=== PATIENT | male | born 1955 | race Caucasian/White ===

== ENCOUNTER 2024-11-28 15:38 | Emergency (ER) | payer MEDICARE, OTHER ==
[~2024-11-28] VITALS: Ht 175.3 cm; Wt 83.9 kg
[2024-11-28 16:07] LABS: BASOPHILS % (AUTO) 0.1 % (0.0-2.0); HEMATOCRIT 41.7 % (36.7-47.1); HEMOGLOBIN 13.7 g/dL (12.5-16.3); LYMPHOCYTES # (AUTO) 0.8 K/uL (0.8-4.8); LYMPHOCYTES % (AUTO) 3.3 % (20.5-51.5); MEAN CORPUSCULAR HEMOGLOBIN 27.8 uug (23.8-33.4); MEAN CORPUSCULAR HGB CONC 33 g/dL (32.5-36.3); MEAN CORPUSCULAR VOLUME 84.7 fL (73.0-96.2); MONOCYTES # (AUTO) 1.4 K/uL (0.1-1.30); MONOCYTES % (AUTO) 6.2 % (0.0-11.0); NEUTROPHILS # (AUTO) 20.4 K/uL (1.8-8.9); NEUTROPHILS % (AUTO) 90.4 % (38.5-71.5); PLATELET COUNT (AUTO) 273 K/uL (152-348); RED BLOOD CELL COUNT(AUTO) 4.93 MIL/uL (4.06-5.63); RED CELL DISTRIBUTION WIDTH 17.9 % (12.1-16.2); WHITE BLOOD COUNT (AUTO) 22.6 K/uL (3.6-10.2)
[2024-11-28] MEDS ORDERED: LIDOCAINE 2% (GLYDO= UROJET) 10 ML JELLY MM ONE ×2 (16:08→17:16)
[2024-11-28 16:16] LABS: DIFFERENTIAL COMMENT 1
[2024-11-28 16:17] LABS: CARBON DIOXIDE 25 mmol/L (21-32); CHLORIDE 98 mmol/L (98-107); CREATININE 2.2 mg/dL (0.6-1.3); GLUCOSE 210 mg/dL (74-106); POTASSIUM 3.8 mmol/L (3.5-5.1); SODIUM SERUM 134 mmol/L (136-145); UREA NITROGEN, BLOOD 57 mg/dL (7-18)
[2024-11-28 16:22] LABS: ALANINE AMINOTRANSFERASE 38 U/L (16-63); ALBUMIN 3.5 g/dL (3.4-5.0); ALKALINE PHOSPHATASE 95 U/L (50-136); ASPARTATE AMINOTRANSFERASE 52 U/L (15-37); BILIRUBIN,DIRECT 0.4 mg/dL (0.0-0.2); BILIRUBIN,TOTAL 1.9 mg/dL (0.2-1.0); TOTAL PROTEIN, SERUM 7.6 g/dL (6.4-8.2)
[2024-11-28] MEDS ORDERED: PANTOPRAZOLE SODIUM 40 MG VIAL ONE (16:33)
[2024-11-28] MEDS ORDERED: ONDANSETRON 4 MG/2 ML VIAL ONE ×2 (16:33→23:03)
[2024-11-28] MEDS ORDERED: HYDROMORPHONE 1 MG/1 ML DISP.SYRIN ONE (16:33)
[2024-11-28] MEDS: IV NORMAL SALINE 1000 ML BAG IV ONE ×2 (16:34→23:21)
[2024-11-28] MEDS: PANTOPRAZOLE SODIUM 40 MG VIAL IV ONE (16:37)
[2024-11-28] MEDS: ONDANSETRON 4 MG/2 ML VIAL IV ONE ×2 (16:44→23:18)
[2024-11-28] MEDS: HYDROMORPHONE 1 MG/1 ML DISP.SYRIN IV ONE (16:45)
[2024-11-28 16:46] LABS: LACTIC ACID 4.1 mmol/L (0.4-2.0)
[2024-11-28] MEDS: LIDOCAINE 2% (GLYDO= UROJET) 10 ML JELLY MM ONE (16:46)
[2024-11-28] MEDS: IV NS 1000 ML 1,000 ML IV ONE (17:30)
[2024-11-28 17:48] LABS: *BILIRUBIN,URIN 1+ (NEGATIVE); *BLOOD, URINE 2+ (NEGATIVE); *CLARITY,URINE CLEAR (CLEAR); *COLOR,URINE DARK YELLOW (YELLOW); *KETONES,URINE 1+ (NEGATIVE); *PROTEIN,URINE 2+ (NEGATIVE); *UROBILINOGEN,URINE 0.2 E.U./dl (NORMAL); LEUKOCYTE ESTERASE ,URINE NEGATIVE (NEGATIVE); NITRITE, URINE POSITIVE (NEGATIVE); UGLUCOSE NEGATIVE (NEGATIVE)
[2024-11-28 17:56] LABS: BACTERIA,URINE MODERATE /HPF (NONE SEEN); WBC,URINE 0-3 /HPF (0-3)
[2024-11-28 17:57] LABS: SQUAMOUS EPITHELIAL CELL,UR FEW /HPF (NONE SEEN)
[2024-11-28] MEDS: CEFTRIAXONE 2 G in IV DEXTROSE 5% 100 ML IV ONE (18:00)
[2024-11-28] MEDS: METRONIDAZOLE 500 MG/NS 100 ML PIGGYBACK IV ONE (18:00)
[2024-11-28] MEDS ORDERED: CEFTRIAXONE /D5W 50ML IVPB **ER PYXIS IV ONE (18:06)
[2024-11-28] MEDS ORDERED: METRONIDAZOLE 500 MG/NS 100ML 100 ML IV ONE (18:06)
[2024-11-28] MEDS ORDERED: SWABABLE VALVE TRANSFER SET EA MC ONE (18:11)
[2024-11-28] MEDS ORDERED: IOHEXOL 300MG/ML 100 ML INFUS..BTL ONE (18:11)
[2024-11-28] MEDS ORDERED: IV NORMAL SALINE 250 ML IV ONE (18:12)
[2024-11-28] MEDS ORDERED: diphenhydrAMINE 50 MG/1 ML VIAL ONE (18:13)
[2024-11-28] MEDS ORDERED: LORAZEPAM 2 MG/1 ML VIAL ONE (18:14)
[2024-11-28] MEDS: HALOPERIDOL LACTATE 5 MG/1 ML VIAL IV ONE (18:15)
[2024-11-28] MEDS: LORAZEPAM 2 MG/1 ML VIAL IV ONE (18:25)
[2024-11-28] MEDS: diphenhydrAMINE 50 MG/1 ML VIAL IV ONE (18:26)
[2024-11-28] MEDS ORDERED: HALOPERIDOL LACTATE 5 MG/1 ML VIAL ONE (19:14)
[2024-11-28 20:01] LABS: ABG BASE EXCESS -1.2 mmol/L (-2.0-3.0); ABG HCO3 24.1 mmol/L (21.0-28.0); ABG PCO2 42.3 mmHg (35.0-48.0); ABG PH 7.373 (7.350-7.450); ABG PO2 68.2 mmHg (83.0-108.0); ABG SITE RIGHT RADIAL; AaDO2 93.2 mmHg; COHb 0.5 % (0.5-1.5); MetHb 0.3 % (0.0-1.5); O2Hb 90.9 % (94.0-98.0)
[2024-11-28] MEDS ORDERED: ALBUTEROL SULFATE 2.5 MG/3 ML NEBU ONE (20:24)
[2024-11-28] MEDS ORDERED: IPRATROPIUM BROMIDE 0.5 MG/2.5 ML NEBU ONE (20:24)
[2024-11-28 20:30] VITALS: O2SAT 95
[2024-11-28] MEDS: ALBUTEROL SULFATE 2.5 MG/3 ML NEBU NEB ONE (20:30)
[2024-11-28 20:41] VITALS: O2SAT 95
[2024-11-28 20:45] VITALS: O2SAT 94
[2024-11-28] MEDS ORDERED: ETOMIDATE 20 MG/10 ML VIAL ONE (21:00)
[2024-11-28] MEDS ORDERED: FENTANYL CITRATE 100 MCG/2 ML AMPUL ONE ×2 (23:04→23:57)
[2024-11-28 23:16] LABS: BASOPHILS % (AUTO) 0.4 % (0.0-2.0); CALCIUM 8.7 mg/dL (8.5-10.1); CARBON DIOXIDE 25 mmol/L (21-32); CHLORIDE 102 mmol/L (98-107); CREATININE 1.6 mg/dL (0.6-1.3); EOSINOPHILS % (AUTO) 0.1 % (0.0-7.0); GLUCOSE 181 mg/dL (74-106); HEMATOCRIT 42.1 % (36.7-47.1); LYMPHOCYTES # (AUTO) 0.6 K/uL (0.8-4.8); MEAN CORPUSCULAR HEMOGLOBIN 28.3 uug (23.8-33.4); MEAN CORPUSCULAR HGB CONC 33 g/dL (32.5-36.3); MEAN CORPUSCULAR VOLUME 85.1 fL (73.0-96.2); MONOCYTES # (AUTO) 0.2 K/uL (0.1-1.30); MONOCYTES % (AUTO) 6.1 % (0.0-11.0); NEUTROPHILS # (AUTO) 1.8 K/uL (1.8-8.9); NEUTROPHILS % (AUTO) 69.4 % (38.5-71.5); PLATELET COUNT (AUTO) 272 K/uL (152-348); RED BLOOD CELL COUNT(AUTO) 4.95 MIL/uL (4.06-5.63); SODIUM SERUM 136 mmol/L (136-145); UREA NITROGEN, BLOOD 54 mg/dL (7-18); WHITE BLOOD COUNT (AUTO) 2.6 K/uL (3.6-10.2)
[2024-11-28 23:17] LABS: DIFFERENTIAL COMMENT 1
[2024-11-28] MEDS: FENTANYL CITRATE 100 MCG/2 ML AMPUL IV ONE (23:21)
[2024-11-29] MEDS: FENTANYL CITRATE 100 MCG/2 ML AMPUL IV ONE ×2 (00:45→04:28)
[2024-11-29 00:59] LABS: ABG BASE EXCESS -6.4 mmol/L (-2.0-3.0); ABG HCO3 22.5 mmol/L (21.0-28.0); ABG PCO2 60.1 mmHg (35.0-48.0); ABG PH 7.191 (7.350-7.450); ABG PO2 71.8 mmHg (83.0-108.0); ABG SITE RIGHT RADIAL; ABG TOTAL HEMOGLOBIN 13.2 G/dL (13.5-17.5); AaDO2 90.2 mmHg; COHb 0.3 % (0.5-1.5); MetHb 0.4 % (0.0-1.5); O2Hb 89.2 % (94.0-98.0); VT, ABG 500 mL
[2024-11-29 01:36] LABS: BASOPHILS % (AUTO) 0.2 % (0.0-2.0); DIFFERENTIAL COMMENT 1; EOSINOPHILS % (AUTO) 0.1 % (0.0-7.0); HEMATOCRIT 38.7 % (36.7-47.1); HEMOGLOBIN 12.8 g/dL (12.5-16.3); LYMPHOCYTES # (AUTO) 0.5 K/uL (0.8-4.8); LYMPHOCYTES % (AUTO) 22.9 % (20.5-51.5); MEAN CORPUSCULAR HEMOGLOBIN 28.4 uug (23.8-33.4); MEAN CORPUSCULAR HGB CONC 33 g/dL (32.5-36.3); MEAN CORPUSCULAR VOLUME 85.6 fL (73.0-96.2); MONOCYTES # (AUTO) 0.1 K/uL (0.1-1.30); MONOCYTES % (AUTO) 5.7 % (0.0-11.0); NEUTROPHILS # (AUTO) 1.4 K/uL (1.8-8.9); NEUTROPHILS % (AUTO) 71.1 % (38.5-71.5); PLATELET COUNT (AUTO) 243 K/uL (152-348); RED BLOOD CELL COUNT(AUTO) 4.53 MIL/uL (4.06-5.63); RED CELL DISTRIBUTION WIDTH 18.4 % (12.1-16.2)
[2024-11-29] MEDS: IV NORMAL SALINE 1000 ML BAG IV ONE (01:56)
[2024-11-29 02:10] LABS: BASOPHILS % (AUTO) 0.2 % (0.0-2.0); HEMATOCRIT 37.7 % (36.7-47.1); HEMOGLOBIN 12.8 g/dL (12.5-16.3); LYMPHOCYTES # (AUTO) 0.5 K/uL (0.8-4.8); LYMPHOCYTES % (AUTO) 25.3 % (20.5-51.5); MEAN CORPUSCULAR HEMOGLOBIN 28.8 uug (23.8-33.4); MEAN CORPUSCULAR HGB CONC 34 g/dL (32.5-36.3); MEAN CORPUSCULAR VOLUME 85.3 fL (73.0-96.2); MONOCYTES # (AUTO) 0.1 K/uL (0.1-1.30); MONOCYTES % (AUTO) 4.6 % (0.0-11.0); NEUTROPHILS # (AUTO) 1.4 K/uL (1.8-8.9); NEUTROPHILS % (AUTO) 69.9 % (38.5-71.5); PLATELET COUNT (AUTO) 239 K/uL (152-348); RED BLOOD CELL COUNT(AUTO) 4.42 MIL/uL (4.06-5.63); RED CELL DISTRIBUTION WIDTH 18.2 % (12.1-16.2)
[2024-11-29 02:12] LABS: DIFFERENTIAL COMMENT 1
[2024-11-29 02:16] LABS: CALCIUM 8.1 mg/dL (8.5-10.1); CARBON DIOXIDE 25 mmol/L (21-32); CHLORIDE 106 mmol/L (98-107); GLUCOSE 115 mg/dL (74-106); POTASSIUM 3.7 mmol/L (3.5-5.1); SODIUM SERUM 138 mmol/L (136-145); UREA NITROGEN, BLOOD 58 mg/dL (7-18)
[2024-11-29] MEDS ORDERED: FENTANYL CITRATE 100 MCG/2 ML AMPUL ONE (04:22)
[2024-11-29] MEDS ORDERED: DILTIAZEM HCL 25 MG IV ONE (04:37)
[2024-11-29] MEDS ORDERED: NOREPINEPHRINE 8MG/NS 250ML 250 ML IV ONE (04:52)
[2024-11-29 05:30] VITALS: O2SAT 88
[2024-11-29] MEDS: DILTIAZEM HCL 25 MG IV IV ONE ×2 (05:40→05:41)
[2024-11-29 05:43] VITALS: BP 81/52
[2024-11-29] MEDS: NOREPINEPHRINE 8MG/NS 250ML 250 ML IV PRN (05:43)
== END 2024-11-29 05:42 | disposition short-term general hospital (02) ==
LOC: ER 15:38
DX: A41.9 Sepsis, unspecified organism (principal); R65.21 Severe sepsis with septic shock; K92.2 Gastrointestinal hemorrhage, unspecified; K56.7 Ileus, unspecified; K35.80 Unspecified acute appendicitis; F03.90 Unspecified dementia, unspecified severity, without behavioral disturbance, psychotic disturbance, mood disturbance, and anxiety; J93.9 Pneumothorax, unspecified; M54.9 Dorsalgia, unspecified; R00.0 Tachycardia, unspecified; R07.9 Chest pain, unspecified; R06.02 Shortness of breath
CPT/HCPCS: 99082 ×2; 80076; 80048 ×3; 81001; 83880; 83735; 85025 ×4; 85730; 86850; 86900; 86901; 87040 ×2; 87086; 84484 ×4; 36415 ×2; 71045 ×9; 74176; 74177; 94640; 31500; 93005 ×2; 32551; 99291; 96361; 96365; 96375 ×2; 96376 ×2; 99292; 83605 ×2; 36600 ×4; 70450; J0696 ×2; J1200; J3490 ×5; J1630; J2060; J2405 ×2; Q9967; J2470; J3010 ×3; J1171; J7040 ×5; 94760; A4606; A4663; J3590